=== PATIENT | male | born 1945 | race Caucasian/White ===

== ENCOUNTER → 2023-05-21 14:57 | Outpatient (CLI) | payer MEDICARE, SELFPAY ==
--- NOTE | 2023-05-21 | DI.ECHO.S_ITS ---
[facility] +---------+ : : [address] [place] [address] : : : : [id number] : : : : Phone: [phone]---------+ Echocardiogram Report + + :Name: SUKHJINDER CHANDLER Study Date: 05/21/2023 Height: 68 in : :[facility] ReadingLocation: Weight: 171 lb : : Gender: Male BSA: 1.9 m2 : :: 1945 Age: 77 yrs BP: 144/82 mmHg: :Reason For Study: Cardiac Murmur : :Ordering Physician: ROGER, : :JOSHUA Performed By: Shannan Palm : :Referring: JOSHUA DURAN : + + Interpretation Summary The ejection fraction is estimated to be 55-60%. Diastolic parameters suggest probable normal left ventricular diastolic function and normal filling pressures. The right ventricle is normal in size and function. No significant valvular abnormalities. Pulmonary artery pressures cannot be estimated because of the lack of a measurable TR jet velocity but the IVC suggests a CVP of around 3 mmHg. Procedure: A two-dimensional transthoracic echocardiogram with color flow and Doppler was performed. The study quality was technically adequate. There is no prior echocardiogram noted for this patient. The patient was in normal sinus rhythm during the exam. Left Ventricle: The left ventricle is normal in size. The ejection fraction is estimated to be 55-60%. Diastolic parameters suggest probable normal left ventricular diastolic function and normal filling pressures. Right Ventricle: The right ventricle is normal in size and function. Atria: The left atrial size is normal. Right atrial size is normal. The atrial septum is aneurysmal. There is no Doppler evidence for an interatrial shunt. Mitral Valve: The mitral valve is normal. There is no mitral valve stenosis. There is trace mitral regurgitation. Aortic Valve: The aortic valve is trileaflet. The aortic valve opens well. There is no aortic valve stenosis. No aortic regurgitation is present. Tricuspid Valve: The tricuspid valve is normal. There is no tricuspid stenosis. There is trace tricuspid regurgitation. Pulmonary artery pressures cannot be estimated because of the lack of a measurable TR jet velocity but the IVC suggests a CVP of around 3 mmHg. Pulmonic Valve: The pulmonic valve leaflets are thin and pliable; valve motion is normal. There is no pulmonic valvular stenosis. There is mild pulmonic regurgitation. Great Vessels: The aortic root is normal size. The ascending aorta is at the upper limits of normal in size. The pulmonary artery is normal size. The IVC is of normal diameter and collapses greater than 50% with a sniff. This suggests a low right atrial pressure of 3 mm Hg. Pericardium/ Pleura There is no pericardial effusion. There is no pleural effusion. MMode/2D Measurements & Calculations LVIDd: 5.1 cm LVOT diam: 2.0 cm LVIDs: 2.4 cm Ao root diam: 3.3 cm FS: 52.9 % asc Aorta Diam: 3.5 cm IVSd: 1.0 cm LVPWd: 0.90 cm LV us. diameter/BSA (cm/m^2): 2.7 LV sys. diameter/BSA (cm/m^2): 1.3 LA A2 area: 18.6 cm2 RA long axis: 5.3 cm LA A4 area: 17.0 cm2 RA area: 14.7 cm2 LA length (vol): 5.4 cm RA vol: 34.4 ml LA vol: 49.9 ml RA : 18.0 ml/m2 LA vol index: 26.1 ml/m2 IVC diam: 2.4 cm RVD1 (basal): 3.8 cm LVLs ap4: 6.7 cm LVLd ap2: 7.7 cm TAPSE_phl: 2.5 cm LVLs ap2: 6.8 cm Doppler Measurements & Calculations Ao V2 max: 169.3 cm/sec LVOT Max Leonid: 116.0 cm/sec Ao V2 mean: 108.3 cm/sec LV V1 max P.4 mmHg Ao max P.0 mmHg LV V1 VTI: 26.9 cm Ao mean P.0 mmHg MICHELLE(I,D): 2.2 cm2 Ao V2 VTI: 37.6 cm MICHELLE(V,D): 2.2 cm2 sev ratio: 0.71 MICHELLE indexed to BSA (cm^2/m^2): 1.2 MV E max leonid: 58.6 cm/sec TR max leonid: 218.0 cm/sec MV A max leonid: 89.5 cm/sec TR max P.0 mmHg MV E/A: 0.65 PA V2 max: 142.0 cm/sec Med Peak E' Leonid: 8.7 cm/sec PA V2 mean: 88.4 cm/sec E/E' med: 6.8 PA mean P.0 mmHg Lat Peak E' Leonid: 11.4 cm/sec PA pr(Accel): 50.6 mmHg E/E' lat: 5.1 E/e' average: 5.9 MV dec time: 0.35 sec SV(LVOT): 84.4 ml AV VR_phl: 0.69 MICHELLE(VTI)/BSA_phl: 1.2 Reading Physician:05:15 PM
== END ==
PROVIDERS: PCP Registered Nurse; Referring Provider Registered Nurse; Visit Provider Registered Nurse
DX: R01.1 Cardiac murmur, unspecified (principal)
CPT/HCPCS: 93306

== ENCOUNTER → 2024-06-29 10:13 | Outpatient (CLI) | payer MEDICARE, SELFPAY ==
[2024-06-29 12:45] LABS: Thyroid Stimulating Hormone 1.06 uIU/mL (0.47-4.68)
== END ==
PROVIDERS: PCP Registered Nurse; Referring Provider Registered Nurse; Visit Provider Registered Nurse
DX: E89.0 Postprocedural hypothyroidism (principal)
CPT/HCPCS: 36415; 84443

== ENCOUNTER → 2024-07-31 15:10 | Outpatient (CLI) | payer MEDICARE, SELFPAY ==
--- NOTE | 2024-07-31 | DI.RAD.S_ITS ---
PROCEDURE: XR LUMBAR SPINE 2-3V INDICATIONS: LUMBAR RADICULOPATHY TECHNIQUE: 3 views of the lumbar spine were acquired. COMPARISON: None. FINDINGS: Bones: 5 cny-lwi-qwupggl vertebrae are present. There is normal bony alignment. No vertebral body compression fractures. No suspicious bony lesions. Disc space narrowing in the mid lumbar spine. Hypertrophic facet joints throughout the exam particularly lower lumbar spine. Grade 1 anterior spondylolisthesis L4-5. Soft tissues: Overlying bowel gas pattern is normal. No suspicious soft tissue calcifications. IMPRESSION: No fracture or traumatic malalignment. Degenerative disc disease, arthropathy and grade 1 anterior spondylolisthesis L5-S1 Approved by: Serg Castillo M.D. on 07/31/2024 at 18:49
--- NOTE | 2024-07-31 15:13 | DI.MRI.S_ITS ---
PROCEDURE: MR LUMBAR SPINE WO CON INDICATIONS: LUMBAR RADICULOPATHY TECHNIQUE: Noncontrast sagittal T1 spin echo and T2 fast echo, sagittal STIR, and T2 fast spin echo through the lumbar spine. In cases with scoliosis, additional coronal T2 fast spin echo may be performed. COMPARISON: [facility], CR, XR LUMBAR SPINE 2-3V, 07/31/2024, 15:47. FINDINGS: Image quality: Diagnostic, with note made of motion artifact. Alignment and Curvature: Mild levoconvex scoliotic curvature is noted. There is minimal retrolisthesis seen at L1-L2 and L2-L3. Mild grade 1 anterolisthesis is seen at L4-L5. Bone Marrow: Marrow is of normal overall signal. No acute vertebral body compression fractures. Spinal Cord: Conus medullaris terminates at the T12-L1 level. Visualized cord demonstrates normal signal and size. Paraspinous Soft Tissues: No paravertebral masses. This patient has transitional lumbar anatomy. For the purposes of this examination, the level with the last well-developed disc space is considered to be L5-S1. By this numbering scheme, the L5 level is transitional and is partially sacralized. T12-L1: [id number] loss of disc and disc signal can be seen. Moderate generalized disc bulge is seen. There is a superimposed central disc protrusion. There is at least moderate right-sided and moderate left-sided neural foraminal narrowing. Mild central canal narrowing is seen. L1-L2: Mild loss of disc height is seen. Loss of disc signal is seen. Moderate disc bulge is seen, with a superimposed central/right disc extrusion. Moderate facet joint hypertrophy is seen. Associated hypertrophy of the ligamentum flavum can be seen. Moderate central canal narrowing is seen. L2-L3: At least moderate loss of disc height and disc signal can be seen. Moderate generalized disc bulge is seen. There is a central disc osteophyte protrusion. Mild to moderate facet hypertrophy is seen. There is moderate right-sided and at least moderate left-sided neural foraminal narrowing. There is a degree of compression upon the exiting left L2 nerve root. At least moderate central canal narrowing is seen, as on series 5, image 10. L3-L4: The disc height is well-preserved. Loss of disc signal is seen at this level. Moderate generalized disc bulge is seen. There is a superimposed central disc protrusion. Moderate facet joint hypertrophy is seen. Associated hypertrophy of the ligamentum flavum can be seen. There is at least moderate left-sided neural foraminal narrowing, with a mild degree of compression upon the exiting left L3 nerve root. Moderate right-sided neural foraminal narrowing is seen. Moderate central canal narrowing is seen. L4-L5: The disc height is well-preserved. Loss of disc signal is seen at this level. Moderate generalized disc bulge is seen. There is a superimposed central disc protrusion. Moderate to prominent facet hypertrophy is seen at this level. There is moderate to severe right-sided and at least moderate left-sided neural foraminal narrowing. There is a degree of compression seen upon the exiting nerve roots. Severe central canal narrowing is seen, as on series 5, image 17. L5-S1: The disc height and disk signal are well-preserved. Mild generalized disc bulge is seen. No significant neural foraminal or central canal narrowing can be seen. IMPRESSION: Multiple levels of lumbar spine degenerative change can be seen, including a right-sided disc extrusion at L1-L2. There is severe central canal narrowing seen at the L4-L5 level. Several sites of significant neural foraminal narrowing can be seen, with associated exiting nerve root compression. Mild levoconvex scoliotic curvature is noted. Mild alignment abnormalities are seen, including mild grade 1 anterolisthesis at L4-L5. There is transitional lumbar anatomy, with partial sacralization of the L5 level. A transitional disc is seen at the S1-S2 level. Dictated by: Israel Arias M.D. on 08/01/2024 at 14:39 Approved by: Israel Arias M.D. on 08/01/2024 at 14:45
== END ==
PROVIDERS: PCP Registered Nurse; Referring Provider Registered Nurse; Visit Provider Registered Nurse
DX: M51.16 Intervertebral disc disorders with radiculopathy, lumbar region (principal); M47.26 Other spondylosis with radiculopathy, lumbar region; M43.17 Spondylolisthesis, lumbosacral region; M48.061 Spinal stenosis, lumbar region without neurogenic claudication; M41.9 Scoliosis, unspecified
CPT/HCPCS: 72100; 72148

== ENCOUNTER → 2024-08-01 12:47 | Outpatient (CLI) | payer MEDICARE, SELFPAY ==
--- NOTE | 2024-08-01 12:53 | EKG_ITS ---
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
[2024-08-01 13:10] LABS: Add Manual Diff / Slide Review NO; Basophils Absolute Auto 100 /uL (0-100); Eosinophils Absolute Auto 400 /uL (0-450); Eosinophils Percent Auto 5.1 % (2-4); Hematocrit 42.1 % (41-53); Hemoglobin 14.5 g/dL (13.5-17.5); Lymphocytes Absolute Auto 1100 /uL (1100-4500); Lymphocytes Percent Auto 16.2 % (25-40); Mean Corpuscular HGB Conc 34.5 % (30-36); Mean Corpuscular Volume 89.9 fL (80-100); Monocytes Absolute Auto 500 /uL (0-900); Monocytes Percent Auto 6.7 % (3-14); Neutrophils Absolute Auto 5000 /uL (1500-7000); Platelet Count 260 X10^3/uL (150-400); Red Blood Cell Count 4.68 X10^6/uL (4.5-5.9)
[2024-08-01 13:37] LABS: BUN Creatinine Ratio 9.6 (6-22); Blood Urea Nitrogen 14 mg/dL (9-20); Calcium 8.3 mg/dL (8.4-10.2); Carbon Dioxide 30 mmol/L (22-32); Chloride 102 mmol/L (98-107); Estimated Glomerular Filt Rate 49 mL/min (>60); Glucose 108 mg/dL (80-110); HEMOLYSIS < 15 (0-50); Potassium 3.9 mmol/L (3.4-5.1); Sodium 137 mmol/L (137-145)
[2024-08-01 13:39] LABS: Hemoglobin A1C% w Est Avg Glu 4.8 % (4.0-6.0)
[2024-08-01 14:07] LABS: Appearance Urine UA CLEAR; Bilirubin Urine UA NEGATIVE (NEGATIVE); Color Urine UA YELLOW; Glucose Urine UA NEGATIVE (Negative); Ketones Urine UA NEGATIVE (NEGATIVE); Leukocyte Esterase Urine UA NEGATIVE (NEGATIVE); Nitrite Urine UA NEGATIVE (Negative); Occult Blood Urine UA NEGATIVE (Negative); Protein Urine UA NEGATIVE (Negative); Specific Gravity Urine UA 1.025 (1.000-1.035)
[2024-08-01 14:40] LABS: Bacteria Urine Occasional (0-1); Culture Indicated Urine Cult Not Indicated; Mucus Urine 2+ (Negative); RBC Urine 1-5/HPF (0-5/HPF); Squamous Epithelial Cell Urine 0-1 /HPF (0-5/HPF); Urine Volume 10mL (spun); WBC Urine 0-1/HPF (0-5/HPF)
== END ==
PROVIDERS: PCP Registered Nurse; Referring Provider Orthopaedic Surgery; Visit Provider Orthopaedic Surgery
DX: Z01.818 Encounter for other preprocedural examination (principal); R73.9 Hyperglycemia, unspecified; Z01.812 Encounter for preprocedural laboratory examination; N39.0 Urinary tract infection, site not specified
CPT/HCPCS: 36415; 80048; 81001; 83036; 85025; 93005

== ENCOUNTER → 2024-09-29 11:11 | Outpatient (CLI) | payer MEDICARE, SELFPAY ==
--- NOTE | 2024-09-29 11:13 | DI.RAD.S_ITS ---
PROCEDURE: FL BARIUM SWALLOW INDICATIONS: DYSPHAGIA COMPARISON: None. FINDINGS: Function: There is normal esophageal peristalsis. No elicited gastroesophageal reflux. There is normal transit of a calibrated barium tablet through the esophagus into the stomach. Morphology: Air-contrast images demonstrate normal mucosal morphology. Single contrast views show no esophageal strictures, extrinsic mass effects, or diverticula. Limited images of the stomach demonstrate normal appearance. IMPRESSION: Normal esophagram. Approved by: Josue Alba M.D. on 09/29/2024 at 14:27
== END ==
LOC: RAD 11:12
PROVIDERS: PCP Registered Nurse; Referring Provider Registered Nurse; Visit Provider Registered Nurse
DX: R13.10 Dysphagia, unspecified (principal)
CPT/HCPCS: 74220